=== PATIENT | female | born 1995 | race American Indian/Alaskan Native ===

== ENCOUNTER 2020-02-10 17:09 | Inpatient (IN) | payer OTHER ==
[2020-02-10] MEDS ORDERED: LACTATED RINGERS 1,000 ML IV ONE (21:27)
[2020-02-10] MEDS ORDERED: FAMOTIDINE 20 MG/2 ML INJ IV ONE (23:24)
[2020-02-11] MEDS ORDERED: DINOPROSTONE 10 MG VAG SUPP VG ONE (04:00)
[2020-02-11] MEDS ORDERED: LACTATED RINGERS 1,000 ML ONE ×2 (10:59→18:37)
[2020-02-11] MEDS ORDERED: OXYTOCIN/NS 30 UNIT/500 ML DRIP IV ONE (11:00)
[2020-02-11] MEDS ORDERED: FAMOTIDINE 20 MG/2 ML INJ IV ONE ×2 (11:00→22:45)
[2020-02-11] MEDS ORDERED: LACTATED RINGERS 1000 ML IV SOLN ONE (11:00)
[2020-02-11] MEDS ORDERED: BICITRA ORAL LIQD 30ML ONE (14:42)
[2020-02-11] MEDS ORDERED: OXYTOCIN DRIP 30,000 MILLIUNITS/500 ML BAG IV ONE (16:55)
[2020-02-12] MEDS ORDERED: BUTORPHANOL 2 MG/1 ML INJ IV PRN (01:12)
[2020-02-12] MEDS: fentaNYL 100 MCG/2 ML INJ IV PRN ×2 (01:20→07:23)
[2020-02-12] MEDS ORDERED: LACTATED RINGERS 1,000 ML ONE (02:04)
[2020-02-12] MEDS ORDERED: TERBUTALINE 1 MG/1 ML INJ SUB-Q PRN (02:37)
[2020-02-12] MEDS ORDERED: AMPICILLIN/NS 2 GM/100 ML 2 GM/100 ML BAG IV ONE (02:37)
[2020-02-12] MEDS ORDERED: ePHEDrine SULFATE 50 MG/1 ML INJ IV PRN (02:37)
[2020-02-12] MEDS ORDERED: LACTATED RINGERS 1,000 ML IV SCH (03:00)
--- NOTE | 2020-02-12 07:42 | History and Physical Report ---
History of Present Illness Date of examination: 02/11/20 Date of admission: Chief complaint: sent from the office History of present illness: Pt is a 25 year old -[place] female VERNON 02/08/20 at 40w3d who presents from the office with non-reactive NST. She reports rare contractions and denies vaginal bleeding or leakage of fluid. She has had care at [facility] since 16 wks complicated by abnormal pap smear, EIF followed by MFM, h/o right pyelectasis that resolved in November 2019, GERD on omeprazole, glucose intolerance, IUGR followed by MFM which resolved, and trichomonas treated with negative test of cure. She is GBS positive. Pt had a BPP in triage which was noted to be 4/8 with SHAHEEN of 4 cm. Past History Past Medical History: GERD Past Surgical History: no surgical history [employer] INS[employer] AD[employer]ER History: abnormal PAP smear, trichomonas (treated with negative test of cure ) Family/Genetic History: diabetes Social history: no significant social history - Obstetrical History Expected Date of Delivery: 02/08/20 Actual Gestation: 40 Week(s) 4 Day(s) : 2 Para: 0 Hx # Term Pregnancies: 0 Number of Pregnancies: 0 Spontaneous Abortions: 0 Induced : 1 Number of Living Children: 0 Medications and Allergies Allergies Allergy/AdvReac Type Severity Reaction Status Date / Time No Known Allergies Allergy Verified 02/10/20 21:29 Active Meds: Active Medications Butorphanol Tartrate (Stadol) 2 mg IV Q2H PRN PRN Reason: Labor Pain Last Admin: 02/12/20 03:42 Dose: 2 mg Documented by: Ephedrine Sulfate (Ephedrine Sulfate) 10 mg IV Q2M PRN PRN Reason: Hypotension Fentanyl (Sublimaze) 100 mcg IV Q2HR PRN PRN Reason: Labor Pain Last Admin: 02/12/20 07:23 Dose: 100 mcg Documented by: Oxytocin/Sodium Chloride (Pitocin/Ns 30 Unit/500ml) 30 units in 500 mls @ 2 mls/hr IV TITR YUE; Protocol Lactated Ringer's (Lactated Ringers) 1,000 mls @ 125 mls/hr IV DIRECT YUE Ampicillin Sodium (Ampicillin/Ns 1 Gm/50 Ml) 1 gm in 50 mls @ 100 mls/hr IV Q4HR YUE; Protocol Terbutaline Sulfate (Brethine) 0.25 mg SUB-Q ONCE PRN PRN Reason: Hyperstimulation/Hypertonicity Review of Systems All systems: negative - Vital Signs Vital signs: Vital Signs Temp Pulse Resp BP 98.3 F 100 H 18 126/83 02/10/20 19:11 02/10/20 19:11 02/10/20 19:11 02/10/20 19:11 Temp Pulse Resp BP Pulse Ox 98.4 F 81 18 120/76 85 02/11/20 19:12 02/11/20 19:19 02/12/20 07:23 02/11/20 19:19 02/11/20 08:54 - Physical Exam Breasts: Positive: deferred Abdomen: Positive: soft (gravid ) Genitourinary (Female): Positive: normal external genitalia Uterus: Positive: enlarged (gravid ) - Obstetrical FHR: category 2 Uterine Contraction Monitor Mode: External Cervical Dilatation: 0.5 Uterine Contraction Pattern: Irregular Uterine Tone Measurement Phase: Resting Uterine Contraction Intensity: Mild Results All other labs normal. Assessment and Plan A: IUP at 40w3d Oligohydramnios Abnormal pap smear EIF followed by MFM h/o right pyelectasis that resolved in November 2019 GERD on omeprazole Glucose intolerance IUGR followed by MFM which resolved Trichomonas treated with negative test of cure GBS positive P: Admit to labor and delivery Begin induction of labor with cervidil Ampicillin for GBS prophylaxis Closely monitor maternal and status
--- NOTE | 2020-02-12 08:13 | Progress Note ---
Assessment and Plan A: 25 yo at 40 weeks EGA NRFHT and oligohydramnios Membranes ruptured GBS positive P: Continue induction of labor. Take a 1 hour break from Pitocin, then re-initiate IUPC placed Ampicillin prophylaxis Anticipate Subjective - Subjective Date of service: 02/12/20 Principal diagnosis: NRFHT, oligohydramnios Interval history: HD2 of IOL for NRFHT and oligohydranios. SROM at 0330 this morning. Currently on Pitocin. Patient reports: loss of fluid, contractions, no new complaints Objective - Vital Signs Vital Signs: Vital Signs - 12hr 02/12/20 07:23 Respiratory 18 Rate - Exam Lungs: Normal air movement Abdomen: Present: soft FHR: category 1 Uterine Contraction Monitor Mode: External Cervical Dilatation: 1.5 Uterine Contraction Pattern: Regular Uterine Tone Measurement Phase: Contraction Uterine Contraction Intensity: Strong/Firm
[2020-02-12] MEDS ORDERED: fentaNYL-BUPIV 2 MCG/ML-0.125% 200 MCG/100 ML BAG EPIDURAL ONE (08:28)
[2020-02-12] MEDS: AMPICILLIN/NS 1 GM/50 ML 1 GM/50 ML BAG IV SCH ×4 (08:30→21:10)
[2020-02-12] MEDS ORDERED: NALOXONE 2 MG/2 ML INJ IV PRN (08:56)
[2020-02-12] MEDS ORDERED: diphenhydrAMINE 50 MG/ML VIAL IV PRN (08:56)
[2020-02-12] MEDS ORDERED: NalbUPHINE 10 MG/1 ML INJ IV PRN (08:56)
[2020-02-12] MEDS ORDERED: ONDANSETRON 4 MG/2 ML INJ IV PRN (08:56)
--- NOTE | 2020-02-12 09:21 | Ultrasound Report ---
ULTRASOUND OBSTETRIC LIMITED ULTRASOUND BIOPHYSICAL PROFILE INDICATION / CLINICAL INFORMATION: WELLBEING. Clinical Gestational Age (GA) in weeks, days: 40, 2 TECHNIQUE: Transabdominal. COMPARISON: None available. FINDINGS: BREATHING MOVEMENT = 0 GROSS BODY MOVEMENT = 2 TONE = 2 QUALITATIVE AMNIOTIC FLUID VOLUME = 0 TOTAL BIOPHYSICAL SCORE = 4/8 HEART RATE (beats per minute): 156 AMNIOTIC FLUID INDEX (cm) = 4.2 (normal = 7-24 cm) PRESENTATION: Cephalic. ADDITIONAL FINDINGS: Placenta not well visualized on the current study. IMPRESSION: 1. Biophysical Score = 4/8 2. Decreased amniotic fluid index of 4.2 cm. Signer Name: Yane Bernal MD Signed: 02/11/2020 2:24 AM Workstation Name: [employer]
--- NOTE | 2020-02-12 09:32 | Anesthesia Consultation ---
Anesthesia Consult and Med Hx Date of service: 02/12/20 - Airway Anesthetic Teeth Evaluation: Good ROM Head & Neck: Adequate Mental/Hyoid Distance: Adequate Mallampati Class: Class II Intubation Access Assessment: Probably Good - Pulmonary Exam CTA: Yes - Cardiac Exam Cardiac Exam: RRR - Pre-Operative Health Status ASA Pre-Surgery Classification: ASA2 Proposed Anesthetic Plan: Epidural - Pulmonary Hx Smoking: No Hx Sleep Apnea: No - Cardiovascular System Hx Hypertension: No Hx Heart Attack/AMI: No - Gastrointestinal Hx Gastroesophageal Reflux Disease: No - Endocrine Hx Insulin Dependent Diabetes: No Hx Non-Insulin Dependent Diabetes: No - Other Systems Hx Alcohol Use: Yes (not since )
--- NOTE | 2020-02-12 09:33 | Progress Note ---
Labor Epidural - Labor Epidural Start Time: 09:10 Stop Time: 09:30 Performed by:: BARRY FIGUEROA ([facility]) Procedure: Patient is requesting a laboring epidural for laboring pain. Patient IDed, H&P reviewed, all questions and concerns were answered, and consent was signed. Timeout was performed at bedside. Patient in sitting position. Sterile prep and drape was performed. 3ml of 1% lidocaine skin wheal at L[3]- L [4]. 18-gauge Touhy epidural needle was advanced to loss of resistance with air technique. Negative CSF negative blood. Epidural catheter advanced to [15] centimeters. [-] Aspiration [-] test dose. Sterile dressing applied. Patient tolerated procedure.
[2020-02-12] MEDS: fentaNYL-BUPIV 2 MCG/ML-0.125% 200 MCG/100 ML BAG EPIDURAL SCH ×2 (09:43→17:58)
[2020-02-12] MEDS: OXYTOCIN DRIP 30 UNITS/500 ML BAG IV SCH ×2 (11:14→11:40)
[2020-02-12] MEDS ORDERED: MINERAL OIL 30 ML ORAL LIQD ONE (23:53)
[2020-02-13] MEDS ORDERED: METHYLERGONOVINE MALEATE 0.2 MG/ML VIAL IM ONE ×2 (00:33→00:36)
[2020-02-13] MEDS ORDERED: LIDOCAINE (2%) 20 MG/1 ML VIAL 20 ML MDV INFILTRATI ONE (00:41)
--- NOTE | 2020-02-13 01:01 | Procedure Note ---
OB Delivery Note - Delivery Date of Delivery: 02/13/20 Surgeon: FRANCISCO CAMARA Estimated blood loss: 500cc - Vaginal Delivery presentation: vertex Delivery position: OA Intrapartum events: PROM->1hr before delivery, decreased FHT variability, mult.variable deceleratio Delivery induction: cervidil Delivery augmentation: rupture of membranes, pitocin Delivery monitor: external FHT, internal uterine Route of delivery: Delivery placenta: spontaneous Delivery cord: other (body cord ) Episiotomy: none Delivery laceration: 1st degree (perineal ), other (left labial hemostatic; right labial repaired with a figure eight of 3-0 Vicryl ) Delivery repair: vicryl Anesthesia: local, epidural - Infant A at 1 minute: 8 at 5 minutes: 9 Infant Gender: Female (3030g (6lb 11 oz) @ 0028 am)
[2020-02-13] MEDS ORDERED: IBUPROFEN 800 MG TAB PO PRN (01:47)
[2020-02-13] MEDS ORDERED: diphenhydrAMINE 25 MG CAP PO PRN (02:41)
[2020-02-13] MEDS ORDERED: ONDANSETRON 4 MG/2 ML INJ IV PRN (02:41)
[2020-02-13] MEDS ORDERED: MAGNESIUM HYDROXIDE (MOM) ORAL LIQD UDC PO PRN (02:41)
[2020-02-13] MEDS ORDERED: BENZOCAINE/MENTHOL 20/0.5% TOP SPRAY 56 GM TP PRN (02:41)
[2020-02-13] MEDS ORDERED: PROMETHAZINE 25 MG TAB PO PRN (02:41)
[2020-02-13] MEDS ORDERED: LANOLIN/ZINC/DIMETHICONE (LANSINOH) 7 GM TP PRN ×2 (02:41)
[2020-02-13] MEDS ORDERED: WITCH HAZEL/ GLYCERIN PAD TP PRN (02:41)
[2020-02-13] MEDS ORDERED: PROMETHAZINE 25 MG RECT SUPP PR PRN (02:41)
[2020-02-13 12:46] LABS: Hematocrit 32.4 % (30.3-42.9); Hemoglobin 10.3 gm/dl (10.1-14.3)
[2020-02-13] MEDS: PRENATAL VIT27-FE FUMARATE-FOLIC ACID VIT TAB PO SCH (15:31)
[2020-02-13] MEDS: FERROUS SULFATE 325 MG TAB PO SCH ×2 (15:32→22:23)
[2020-02-13] MEDS ORDERED: FAMOTIDINE 20 MG TAB PO ONE (16:39)
[2020-02-13] MEDS: IBUPROFEN 600 MG TAB PO SCH (19:02)
--- NOTE | 2020-02-13 21:53 | Post Anesthesia Evaluation ---
- Post Anesthesia Evaluation Patient Participated: Yes Airway Patent: Yes Stable Respiratory Function: Yes Nausea/Vomiting: No Temp > 96.8F: Yes Pain Manageable: Yes Adequeate Hydration: Yes Anesthesia Complications: No Block Receding Appropriately: Yes Patient on Ventilator: No
[2020-02-14] MEDS: IBUPROFEN 600 MG TAB PO SCH ×4 (00:57→13:09)
[2020-02-14] MEDS ORDERED: MEASLES, MUMPS & RUBELLA 12,500 UNIT/0.5 ML VACCINE SUB-Q ONE (01:04)
[2020-02-14] MEDS ORDERED: DIPHtheria,PERTUSSIS(ACELL),TETANUS VACCINE/PF 0.5 ML VIAL IM ONE (06:00)
--- NOTE | 2020-02-14 08:14 | Progress Note ---
Assessment and Plan - Patient Problems (1) Oligohydramnios Current Visit: Yes Status: Acute Plan to address problem: Patient doing well Discharge home Subjective - Subjective Date of service: 02/14/20 Principal diagnosis: NRFHT, oligohydramnios Interval history: The patient is without any significant complaints. She reports that her pain is controlled. Her lochia is minimal Patient reports: appetite normal, voiding normally, pain well controlled : doing well Objective - Vital Signs Latest vital signs: Vital Signs Temp Pulse Resp BP BP Pulse Ox 02/14/20 00:57 18 02/14/20 00:20 97.9 F 84 18 130/79 98 02/13/20 17:08 99.2 F 90 18 139/89 100 02/13/20 12:59 98.2 F 89 20 134/93 100 02/13/20 08:44 97.6 F 91 H 22 129/88 99 Intake and Output 02/13/20 02/14/20 02/14/20 22:59 06:59 14:59 Intake Total 480 480 Balance 480 480 Intake: Oral 240 Intake, Free Water 240 480 Other: Total, Intake Amount 240 # Voids Void 2 1 - Exam Abdomen: Present: normal appearance, soft
--- NOTE | 2020-02-14 08:15 | Discharge Summary ---
Providers - Providers Date of Admission: 02/12/20 10:01 Date of discharge: 02/14/20 Attending physician: FRANCISCO CAMARA 02/13/20 02:41 Consult to Electrostatic Painter [CONS] Routine Reason For Exam: assistance with , SNS Primary care physician: FRANCISCO CAMARA Hospitalization Reason for admission: induction of labor Delivery: Discharge diagnosis: IUP at term delivered Hospital course: The patient was admitted for induction of labor secondary to nonreassuring heart rate tracing and oligohydramnios. The patient had a successful vaginal delivery. course was uneventful. Condition at discharge: Good Disposition: DC- TO HOME OR SELFCARE - Discharge Diagnoses (1) Oligohydramnios Status: Acute Plan - Discharge Medications Prescriptions: Ibuprofen [Motrin] 800 mg PO Q8HR PRN #30 tablet PRN Reason: Pain , Severe (7-10) HYDROcodone/APAP 5-325 [[place] 5/325] 1 each PO Q6HR PRN #15 tablet PRN Reason: Pain - Provider Discharge Summary Activity: no sex for 6 weeks, no heavy lifting 4 weeks, no strenuous exercise Diet: routine Instructions: routine Additional instructions: [] Smoking cessation referral if applicable(refer to patient education folder for contact #) [] Refer to [facility]'s [facility] Booklet Call your doctor immediately for: * Fever > 100.5 * Heavy vaginal bleeding ( >1 pad per hour) * Severe persistent headache * Shortness of breath * Reddened, hot, painful area to leg or breast * Schedule visit - Follow up plan Forms: [facility] Discharge Summary, Discharge Signature Page
[2020-02-14] MEDS: HYDROcodone/ACETAMINOPHEN 5-325 MG TAB PO PRN ×2 (08:47→13:08)
[2020-02-14] MEDS ORDERED: SIMETHICONE 80 MG CHEW TAB PO PRN (09:00)
[2020-02-14] MEDS: FERROUS SULFATE 325 MG TAB PO SCH (10:13)
[2020-02-14] MEDS: PRENATAL VIT27-FE FUMARATE-FOLIC ACID VIT TAB PO SCH (10:13)
[2020-02-14 16:28] VITALS: BP 132/83
== END 2020-02-14 16:00 | disposition home or self-care (01) | DRG 775 ==
LOC: TRG 17:09 → APU 21:50 → LD 02-11 17:41 → TRG 02-12 10:01 → LD 02-12 10:01 → OB 02-13 02:43
PROVIDERS: ADMIT Obstetrics & Gynecology; ATTEND Obstetrics & Gynecology
PROC: 3E0P7VZ Introduction of Hormone into Female Reproductive, Via Natural or Artificial Opening (ICD-10-PCS; 2020-02-12)
PROC: 10H07YZ Insertion of Other Device into Products of Conception, Via Natural or Artificial Opening (ICD-10-PCS; 2020-02-12)
PROC: 3E0R3BZ Introduction of Anesthetic Agent into Spinal Canal, Percutaneous Approach (ICD-10-PCS; 2020-02-12)
PROC: 00HU33Z Insertion of Infusion Device into Spinal Canal, Percutaneous Approach (ICD-10-PCS; 2020-02-12)
PROC: 10E0XZZ Delivery of Products of Conception, External Approach (ICD-10-PCS; principal; 2020-02-13)
PROC: 0HQ9XZZ Repair Perineum Skin, External Approach (ICD-10-PCS; 2020-02-13)
PROC: 3E0234Z Introduction of Serum, Toxoid and Vaccine into Muscle, Percutaneous Approach (ICD-10-PCS; 2020-02-14)
DX: O76 Abnormality in fetal heart rate and rhythm complicating labor and delivery (principal); O41.03X0 Oligohydramnios, third trimester, not applicable or unspecified; O36.5990 Maternal care for other known or suspected poor fetal growth, unspecified trimester, not applicable or unspecified; Z3A.40 40 weeks gestation of pregnancy; Z37.0 Single live birth; O70.0 First degree perineal laceration during delivery; O99.824 Streptococcus B carrier state complicating childbirth; O99.62 Diseases of the digestive system complicating childbirth; K21.9 Gastro-esophageal reflux disease without esophagitis; O42.02 Full-term premature rupture of membranes, onset of labor within 24 hours of rupture; O69.81X0 Labor and delivery complicated by cord around neck, without compression, not applicable or unspecified; Z20.828 Contact with and (suspected) exposure to other viral communicable diseases; Z23 Encounter for immunization
CPT/HCPCS: 36415; 76815; 76819; 85014; 85018; 86592; 86850; 86900; 86901; 88307; 96372; G0378; J0290; J0595; J2210; J2590; J3010; J7120; U0003